=== PATIENT | male | born 1960 | race Caucasian/White ===

== ENCOUNTER 2025-01-29 15:47 | Inpatient (IN) | payer MEDICARE, OTHER ==
[~2025-01-29] VITALS: Ht 172.7 cm; Wt 85.3 kg
[2025-01-29 16:59] LABS: BASOPHILS % 0.6 % (0.0-2.0); EOSINOPHILS % 3.4 % (0.0-5.0); HEMATOCRIT. 48.7 % (42.0-52.0); HEMOGLOBIN. 16.4 g/dL (14.0-18.0); LYMPHOCYTES % 26.7 % (20.0-50.0); MEAN CORPUSCULAR HEMOGLOBIN 30.1 pg (28.0-32.0); MEAN CORPUSCULAR HGB CONC 33.7 g/dL (31.0-37.0); MEAN CORPUSCULAR VOLUME 89.3 fL (80.0-94.0); MONOCYTES % 7.7 % (2.0-8.0); NEUTROPHILS % 61.6 % (40.0-76.0); PLATELET 261 x1000/uL (130-400); RED BLOOD CELL COUNT 5.46 mill/uL (4.7-6.1); RED CELL DISTRIBUTION WIDTH 14.6 % (11.6-14.6); WHITE BLOOD COUNT 7.6 x1000/uL (4.5-11.0)
[2025-01-29 17:05] LABS: CHLORIDE 106 mEq/L (98-107); POTASSIUM 4.2 mEq/L (3.5-5.1); SODIUM 140 mEq/L (136-145)
[2025-01-29 17:06] LABS: CALCIUM 8.7 mg/dL (8.7-10.4); CARBON DIOXIDE 25 mEq/L (21-32)
[2025-01-29 17:11] LABS: CREATININE 0.9 mg/dL (0.6-1.3); GLUCOSE 140 mg/dL (70-105); UREA NITROGEN BLOOD 16 mg/dL (9-23)
[2025-01-29 17:12] LABS: TROPONIN I HIGH SENSITIVITY 11 ng/L (3.0-53)
[2025-01-29 19:17] LABS: TROPONIN I HIGH SENSITIVITY 11 ng/L (3.0-53)
[2025-01-29 20:00] VITALS: BP_SYST 138; BP_SYST 157; BP_DIAS 72; BP_DIAS 73; PULSE 83; PULSE 85; RESP 18; RESP 20; TEMP 36.3; TEMP 36.5; O2SAT 100
[2025-01-29] MEDS ORDERED: ONDANSETRON HCL 4MG/2ML INJ IV PRN (20:30)
[2025-01-29] MEDS ORDERED: DOCUSATE SODIUM 100MG CAPSULE PO PRN (20:30)
[2025-01-29] MEDS ORDERED: CLONIDINE 0.1MG TABLET PO PRN (20:30)
[2025-01-29] MEDS ORDERED: ACETAMINOPHEN 325MG TABLET PO PRN (20:30)
[2025-01-29] MEDS ORDERED: DEXTROSE 50% WATER 50ML SYRINGE IV PRN (20:45)
[2025-01-29] MEDS: LOSARTAN 50 MG TABLET PO SCH (20:56)
[2025-01-29] MEDS: ENOXAPARIN 40MG/0.4ML SYR SUBCUT SCH (20:56)
[2025-01-29] MEDS: INSULIN LISPRO 100 UNITS/ML SUBCUT SCH (21:00)
[2025-01-29] MEDS: BLOOD SUGAR DIAGNOSTIC STRIP TEST SCH (21:04)
[2025-01-29 22:52] LABS: *AMPHETAMINES SCREEN URINE NEGATIVE (NEGATIVE)
[2025-01-29 22:53] LABS: *BARBITURATES SCREEN URINE NEGATIVE (NEGATIVE); *BENZODIAZEPINES SCREEN URINE NEGATIVE (NEGATIVE); *COCAINE SCREEN URINE NEGATIVE (NEGATIVE); CANNABINOID URINE SCREEN NEGATIVE (NEGATIVE); ECSTASY MDMA SCREEN URINE NEGATIVE (NEGATIVE); METHADONE URINE SCREEN NEGATIVE (NEGATIVE); OPIATES URINE SCREEN NEGATIVE (NEGATIVE); PHENCYCLIDINE URINE SCREEN NEGATIVE (NEGATIVE)
[2025-01-30] VITALS: BP 126/63; PULSE 73; RESP 20; TEMP 35.9; O2SAT 97
[2025-01-30 02:23] LABS: TROPONIN I HIGH SENSITIVITY 12 ng/L (3.0-53)
[2025-01-30 04:00] VITALS: BP 127/65; PULSE 66; RESP 18; TEMP 36.1; O2SAT 96
[2025-01-30] MEDS: PANTOPRAZOLE 40MG DR TABLET PO SCH (06:35)
[2025-01-30 07:27] LABS: BASOPHILS % 0.4 % (0.0-2.0); EOSINOPHILS % 3.6 % (0.0-5.0); HEMATOCRIT. 48.2 % (42.0-52.0); HEMOGLOBIN. 16.2 g/dL (14.0-18.0); MEAN CORPUSCULAR HGB CONC 33.6 g/dL (31.0-37.0); MEAN CORPUSCULAR VOLUME 89.2 fL (80.0-94.0); MONOCYTES % 9.6 % (2.0-8.0); NEUTROPHILS % 56.4 % (40.0-76.0); PLATELET 243 x1000/uL (130-400); RED CELL DISTRIBUTION WIDTH 14.1 % (11.6-14.6); WHITE BLOOD COUNT 7.6 x1000/uL (4.5-11.0)
[2025-01-30 08:00] VITALS: BP 133/66; PULSE 64; RESP 18; TEMP 36.6; O2SAT 97
[2025-01-30 08:16] LABS: CHLORIDE 103 mEq/L (98-107); SODIUM 140 mEq/L (136-145)
[2025-01-30 08:17] LABS: CALCIUM 8.7 mg/dL (8.7-10.4); CARBON DIOXIDE 29 mEq/L (21-32)
[2025-01-30 08:22] LABS: CREATININE 0.8 mg/dL (0.6-1.3); GLUCOSE 119 mg/dL (70-105); TRIGLYCERIDE 167 mg/dL (0-150); TROPONIN I HIGH SENSITIVITY 13 ng/L (3.0-53); UREA NITROGEN BLOOD 13 mg/dL (9-23)
[2025-01-30 08:23] LABS: LDL CHOLESTEROL 102 mg/dL (5-100)
[2025-01-30 08:24] LABS: ALANINE AMINOTRANSFERASE 27 IU/L (10-49); ALBUMIN 4.1 g/dL (3.2-4.8); ASPARTATE AMINOTRANSFERASE 20 IU/L (<34); BILIRUBIN DIRECT 0.3 mg/dL (<=3.0); BILIRUBIN TOTAL 0.9 mg/dL (0.1-1.0); CHOLESTEROL 143 mg/dL (<200); HDL CHOLESTEROL 31 mg/dL (>55); PROTEIN TOTAL 6.4 g/dL (6.0-8.3)
[2025-01-30 08:25] LABS: T4 FREE 0.98 ng/dL (0.89-1.76); THYROID STIMULATING HORMONE 11.87 uIU/mL (0.55-4.78)
[2025-01-30] MEDS: ASPIRIN 81MG EC TABLET PO SCH (09:52)
[2025-01-30 12:00] VITALS: BP 159/75; PULSE 73; RESP 18; TEMP 36.5; O2SAT 96
[2025-01-30] MEDS ORDERED: IOHEXOL-350 100 ML BOTTLE ONE (15:30)
[2025-01-30 16:00] VITALS: BP 136/67; PULSE 67; RESP 18; TEMP 36.5; O2SAT 97
[2025-01-30 20:00] VITALS: BP 113/60; PULSE 74; RESP 21; TEMP 36.6; O2SAT 93
[2025-01-30] MEDS: ATORVASTATIN CALCIUM 40MG TABLET PO SCH (20:23)
[2025-01-31] VITALS: BP 135/60; PULSE 62; RESP 18; TEMP 35.9; O2SAT 99
[2025-01-31 04:00] VITALS: BP 107/57; PULSE 67; RESP 20; TEMP 36.5; O2SAT 99
[2025-01-31] MEDS: LEVOTHYROXINE SODIUM 75MCG TABLET PO SCH (06:13)
[2025-01-31 08:00] VITALS: BP 131/59; PULSE 79; RESP 18; TEMP 36.2; O2SAT 98
[2025-01-31 12:00] VITALS: BP 122/66; PULSE 76; RESP 18; TEMP 36.7; O2SAT 98
[2025-01-31 14:33] VITALS: BP 113/62; PULSE 72; TEMP 97.9; O2SAT 99
[2025-01-31 16:00] VITALS: BP 113/62; PULSE 70; RESP 18; TEMP 36.6; O2SAT 98
== END 2025-01-31 16:25 | disposition home or self-care (01) | DRG 74 ==
LOC: ER 15:47 → 8WST 18:45 → EDBEDREQ 18:48 → EDBEDREQTM 18:48 → ENRESERV 19:05
PROVIDERS: ADMIT Internal Medicine; ATTEND Internal Medicine
PROC: 4A00X4Z Measurement of Central Nervous Electrical Activity, External Approach (ICD-10-PCS; principal; 2025-01-31)
DX: G90.89 Other disorders of autonomic nervous system (principal); G45.9 Transient cerebral ischemic attack, unspecified; E03.9 Hypothyroidism, unspecified; E11.9 Type 2 diabetes mellitus without complications; I10 Essential (primary) hypertension; F17.210 Nicotine dependence, cigarettes, uncomplicated; E78.5 Hyperlipidemia, unspecified; E66.9 Obesity, unspecified; Z68.26 Body mass index [BMI] 26.0-26.9, adult
CPT/HCPCS: 36415; 70496; 70498; 70551; 71045; 80048; 80061; 80076; 80305; 82962; 83036; 83880; 84439; 84443; 84484; 85025; 93005; 95816; 97162; 97166; 99285; A4606; J1650; J1815; Q9967